=== PATIENT | male | born 1935 | race Caucasian/White ===

== ENCOUNTER 2022-11-05 15:45 | Inpatient (IN) | payer OTHER, MEDICARE ==
[2022-11-05] MEDS ORDERED: LIDOCAINE 5% TOPICAL PATCH TP ONE (16:30)
[2022-11-05] MEDS ORDERED: ACETAMINOPHEN 325 MG TABLET (FP) ONE (17:15)
[2022-11-05 17:20] LABS: BASO % 0.5 % (0-2.0); EOS % 0.8 % (0-4.5); HEMOGLOBIN 13.7 GM/dL (11.7-16.9); LYMPH % 10.2 % (8-40); MCH 30.1 pg (25.7-33.7); MCHC 34.2 g/dl (32.0-35.9); MEAN CELL VOLUME 88.2 fl (80-96); MEAN PLT VOLUME 8.3 fl (7.5-11.1); NEUT % 81.5 % (42.8-82.8); PLATELET COUNT 234 10^3/uL (134-434); RBC 4.54 M/mm3 (4.00-5.60); RDW 14.6 % (11.9-15.9); WHITE BLOOD COUNT 16.1 K/mm3 (4.0-10.0)
[2022-11-05 17:21] LABS: PH,URINE 5.5 (5.0-8.0); URINE APPEARANCE CLEAR; URINE BILIRUBIN NEGATIVE (NEGATIVE); URINE COLOR YELLOW; URINE GLUCOSE (UA) 3+ (NEGATIVE); URINE KETONE NEGATIVE (NEGATIVE); URINE LEUK ESTERASE NEGATIVE (NEGATIVE); URINE NITRITE NEGATIVE (NEGATIVE); URINE PROTEIN NEGATIVE (NEGATIVE)
[2022-11-05] MEDS: ACETAMINOPHEN 325 MG TABLET (FP) PO ONE (17:22)
[2022-11-05 17:39] LABS: POTASSIUM 3.9 mmol/L (3.5-5.1)
[2022-11-05 17:42] LABS: ALBUMIN 3.6 g/dl (3.4-5.0)
[2022-11-05 17:45] LABS: CREATININE 1.3 mg/dL (0.55-1.3)
[2022-11-05 17:47] LABS: BILIRUBIN,TOTAL 1.8 mg/dL (0.2-1)
[2022-11-05 21:35] LABS: HEMOGLOBIN 13.8 GM/dL (11.7-16.9); MCHC 33.7 g/dl (32.0-35.9); MEAN CELL VOLUME 89.1 fl (80-96); MEAN PLT VOLUME 7.9 fl (7.5-11.1); PLATELET COUNT 265 10^3/uL (134-434); RBC 4.61 M/mm3 (4.00-5.60); RDW 14.6 % (11.9-15.9); WHITE BLOOD COUNT 16.5 K/mm3 (4.0-10.0)
[2022-11-05 21:45] LABS: INR 2.31 (0.83-1.09); PROTHROMBIN TIME (PATIENT) 26.6 SEC (9.7-13.0)
[2022-11-05 21:48] LABS: ACTIVATED PTT 46.1 SECONDS (25.2-36.5)
[2022-11-06] MEDS ORDERED: PIPERACILLIN/TAZOB 3.375 GM 3.375 GM in DEXTROSE 5%-WATER - 50 ML IVPB ONE (01:45)
[2022-11-06] MEDS ORDERED: MELATONIN 5 MG TABLETS PO ONE (02:41)
[2022-11-06] MEDS: SODIUM CHLORIDE 1,000 ML IV SCH ×2 (03:33→15:29)
[2022-11-06] MEDS ORDERED: INSULIN (NOVOLOG) ASPART 100 UNITS/ML 10ML VIAL ONE ×3 (05:53→16:49)
[2022-11-06] MEDS: INSULIN SLIDING SCALE (NOVOLOG) 1 VIAL SQ SCH ×4 (06:11→22:00)
[2022-11-06] MEDS: TAMSULOSIN HCL 0.4 MG CAP PO SCH (07:51)
[2022-11-06] MEDS: FINASTERIDE 5 MG TABLET (FP) PO SCH (07:52)
[2022-11-06 08:10] LABS: BASO % 0.3 % (0-2.0); EOS % 1.3 % (0-4.5); HEMATOCRIT 37.3 % (35.4-49); HEMOGLOBIN 13.1 GM/dL (11.7-16.9); LYMPH % 11.3 % (8-40); MCHC 35.2 g/dl (32.0-35.9); MEAN CELL VOLUME 88.2 fl (80-96); MEAN PLT VOLUME 8.7 fl (7.5-11.1); MONO % 6.8 % (3.8-10.2); NEUT % 80.3 % (42.8-82.8); PLATELET COUNT 207 10^3/uL (134-434); RBC 4.23 M/mm3 (4.00-5.60); RDW 14.5 % (11.9-15.9); WHITE BLOOD COUNT 12.3 K/mm3 (4.0-10.0)
[2022-11-06 08:43] LABS: POTASSIUM 3.3 mmol/L (3.5-5.1)
[2022-11-06 08:45] LABS: CALCIUM 8.7 mg/dL (8.5-10.1)
[2022-11-06 08:46] LABS: ALBUMIN 3.2 g/dl (3.4-5.0); BLOOD UREA NITROGEN 25.7 mg/dL (7-18); MAGNESIUM 2.5 mg/dL (1.8-2.4)
[2022-11-06 08:48] LABS: BILIRUBIN,DIRECT 0.5 mg/dL (0.0-0.2); CREATININE 1.1 mg/dL (0.55-1.3)
[2022-11-06 08:49] LABS: PHOSPHOROUS 3.6 mg/dL (2.5-4.9)
[2022-11-06 08:50] LABS: BILIRUBIN,TOTAL 1.4 mg/dL (0.2-1); TOT PROT 6.3 g/dl (6.4-8.2)
[2022-11-06] MEDS: metoPROLOL SUCCINATE 25 MG TAB.SR.24H (FP) PO SCH (09:11)
[2022-11-06] MEDS: SERTRALINE HCL 50 MG TABLET (FP) PO SCH (09:11)
[2022-11-06] MEDS: POLYETHYLENE GLYCOL (HEALTHYLAX) 3350 17 GM PACKET PO SCH ×2 (09:12→22:12)
[2022-11-06] MEDS: MEMANTINE HCL 10 MG TABLET (FP) PO SCH (09:12)
[2022-11-06] MEDS: MULTIVITAMINS (DAILY MVI) TABLET (FP) PO SCH (09:12)
[2022-11-06] MEDS: TORSEMIDE 20 MG TABLET (FP) PO SCH (09:12)
[2022-11-06 11:54] LABS: N-TERMINAL BNP 264.5 pg/ml (5-450)
[2022-11-06] MEDS: POTASSIUM CHLORIDE TABS 20 MEQ TABLET.ER (FP) PO SCH (15:40)
[2022-11-06] MEDS ORDERED: WARFARIN NA 2 MG TABLET PO SCH (18:00)
[2022-11-06 19:47] LABS: INR 2.03 (0.83-1.09); PROTHROMBIN TIME (PATIENT) 23.4 SEC (9.7-13.0)
[2022-11-06 19:50] LABS: ACTIVATED PTT 38.2 SECONDS (25.2-36.5)
[2022-11-06] MEDS ORDERED: DONEPEZIL HCL 10 MG TABLET (FP) PO SCH (22:00)
[2022-11-06] MEDS ORDERED: ATORVASTATIN CA 10 MG TABLET (FP) PO SCH (22:00)
[2022-11-06] MEDS ORDERED: CHOLECALCIFEROL (VIT D3) 1,000 UNIT (25 MCG) TABLET PO SCH (22:00)
[2022-11-06] MEDS ORDERED: SPIRONOLACTONE 25 MG TABLET PO SCH (22:00)
[2022-11-06] MEDS: LIDOCAINE PATCH REMOVAL MC SCH ×2 (22:12)
[2022-11-07] MEDS: SODIUM CHLORIDE 1,000 ML IV SCH (03:35)
[2022-11-07] MEDS: FINASTERIDE 5 MG TABLET (FP) PO SCH (06:21)
[2022-11-07] MEDS: INSULIN SLIDING SCALE (NOVOLOG) 1 VIAL SQ SCH ×4 (06:21→21:45)
[2022-11-07] MEDS: TAMSULOSIN HCL 0.4 MG CAP PO SCH (07:57)
[2022-11-07 08:26] LABS: INR 1.81 (0.83-1.09); PROTHROMBIN TIME (PATIENT) 20.9 SEC (9.7-13.0)
[2022-11-07 08:29] LABS: ACTIVATED PTT 37.4 SECONDS (25.2-36.5)
[2022-11-07 08:32] LABS: HEMATOCRIT 36.4 % (35.4-49); HEMOGLOBIN 12.6 GM/dL (11.7-16.9); MCH 30.9 pg (25.7-33.7); MCHC 34.8 g/dl (32.0-35.9); MEAN CELL VOLUME 88.9 fl (80-96); MEAN PLT VOLUME 8.8 fl (7.5-11.1); PLATELET COUNT 197 10^3/uL (134-434); RBC 4.09 M/mm3 (4.00-5.60); RDW 14.5 % (11.9-15.9); WHITE BLOOD COUNT 10.7 K/mm3 (4.0-10.0)
[2022-11-07 08:43] LABS: POTASSIUM 3.4 mmol/L (3.5-5.1)
[2022-11-07 08:58] LABS: BLOOD UREA NITROGEN 21.4 mg/dL (7-18)
[2022-11-07 09:01] LABS: CREATININE 0.9 mg/dL (0.55-1.3); PHOSPHOROUS 3.1 mg/dL (2.5-4.9)
[2022-11-07 09:02] LABS: ALBUMIN 3.1 g/dl (3.4-5.0); CALCIUM 8.4 mg/dL (8.5-10.1)
[2022-11-07] MEDS: SERTRALINE HCL 50 MG TABLET (FP) PO SCH (09:02)
[2022-11-07] MEDS: MULTIVITAMINS (DAILY MVI) TABLET (FP) PO SCH (09:02)
[2022-11-07] MEDS: POTASSIUM CHLORIDE TABS 20 MEQ TABLET.ER (FP) PO SCH (09:02)
[2022-11-07 09:03] LABS: MAGNESIUM 2.2 mg/dL (1.8-2.4)
[2022-11-07] MEDS: POLYETHYLENE GLYCOL (HEALTHYLAX) 3350 17 GM PACKET PO SCH ×2 (09:03→21:44)
[2022-11-07] MEDS: metoPROLOL SUCCINATE 25 MG TAB.SR.24H (FP) PO SCH (09:03)
[2022-11-07] MEDS: MEMANTINE HCL 10 MG TABLET (FP) PO SCH (09:03)
[2022-11-07] MEDS: TORSEMIDE 20 MG TABLET (FP) PO SCH (09:03)
[2022-11-07] MEDS ORDERED: INSULIN (NOVOLOG) ASPART 100 UNITS/ML 10ML VIAL ONE ×2 (11:40→17:49)
[2022-11-07] MEDS ORDERED: CHOLECALCIFEROL (VIT D3) 1,000 UNIT (25 MCG) TABLET PO SCH (12:53)
[2022-11-07] MEDS ORDERED: WARFARIN NA 2 MG TABLET PO SCH (18:00)
[2022-11-07] MEDS ORDERED: WARFARIN NA 1 MG TABLET PO ONE (18:00)
[2022-11-07] MEDS: ACETAMINOPHEN 325 MG TABLET (FP) PO ONE (18:27)
[2022-11-07] MEDS: ATORVASTATIN CA 10 MG TABLET (FP) PO SCH (21:44)
[2022-11-07] MEDS: SPIRONOLACTONE 25 MG TABLET PO SCH (21:44)
[2022-11-07] MEDS: CHOLECALCIFEROL (VIT D3) 1,000 UNIT (25 MCG) TABLET PO SCH (21:44)
[2022-11-08] MEDS: INSULIN SLIDING SCALE (NOVOLOG) 1 VIAL SQ SCH ×4 (06:26→22:10)
[2022-11-08] MEDS: FINASTERIDE 5 MG TABLET (FP) PO SCH (06:28)
[2022-11-08] MEDS: TAMSULOSIN HCL 0.4 MG CAP PO SCH (09:40)
[2022-11-08] MEDS: MULTIVITAMINS (DAILY MVI) TABLET (FP) PO SCH (09:41)
[2022-11-08] MEDS: metoPROLOL SUCCINATE 25 MG TAB.SR.24H (FP) PO SCH (09:41)
[2022-11-08] MEDS: MEMANTINE HCL 10 MG TABLET (FP) PO SCH (09:41)
[2022-11-08] MEDS: SERTRALINE HCL 50 MG TABLET (FP) PO SCH (09:42)
[2022-11-08] MEDS: TORSEMIDE 20 MG TABLET (FP) PO SCH (09:42)
[2022-11-08] MEDS ORDERED: POTASSIUM CHLORIDE TABS 20 MEQ TABLET.ER (FP) PO SCH (10:00)
[2022-11-08 10:44] LABS: BASO % 0.4 % (0-2.0); EOS % 1.1 % (0-4.5); HEMATOCRIT 35.6 % (35.4-49); HEMOGLOBIN 12.3 GM/dL (11.7-16.9); LYMPH % 8.9 % (8-40); MCH 30.6 pg (25.7-33.7); MCHC 34.5 g/dl (32.0-35.9); MEAN CELL VOLUME 88.7 fl (80-96); MEAN PLT VOLUME 8.2 fl (7.5-11.1); MONO % 9.1 % (3.8-10.2); NEUT % 80.5 % (42.8-82.8); PLATELET COUNT 204 10^3/uL (134-434); RBC 4.02 M/mm3 (4.00-5.60); RDW 14.6 % (11.9-15.9)
[2022-11-08] MEDS: POLYETHYLENE GLYCOL (HEALTHYLAX) 3350 17 GM PACKET PO SCH ×2 (10:57→22:10)
[2022-11-08 10:58] LABS: POTASSIUM 3.7 mmol/L (3.5-5.1)
[2022-11-08 11:02] LABS: CALCIUM 8.3 mg/dL (8.5-10.1)
[2022-11-08 11:03] LABS: ALBUMIN 2.8 g/dl (3.4-5.0); BLOOD UREA NITROGEN 17.4 mg/dL (7-18); MAGNESIUM 2.2 mg/dL (1.8-2.4)
[2022-11-08 11:06] LABS: CREATININE 0.8 mg/dL (0.55-1.3)
[2022-11-08] MEDS ORDERED: INSULIN (NOVOLOG) ASPART 100 UNITS/ML 10ML VIAL ONE ×2 (11:42→17:33)
[2022-11-08] MEDS ORDERED: traMADol HCL 50 MG TABLET PO PRN (17:43)
[2022-11-08] MEDS ORDERED: ACETAMINOPHEN 325 MG TABLET (FP) PO PRN (17:44)
[2022-11-08] MEDS ORDERED: WARFARIN NA 2 MG TABLET PO SCH (18:00)
[2022-11-08] MEDS: CHOLECALCIFEROL (VIT D3) 1,000 UNIT (25 MCG) TABLET PO SCH (22:08)
[2022-11-08] MEDS: SPIRONOLACTONE 25 MG TABLET PO SCH (22:08)
[2022-11-08] MEDS: ATORVASTATIN CA 10 MG TABLET (FP) PO SCH (22:08)
[2022-11-09] MEDS: INSULIN SLIDING SCALE (NOVOLOG) 1 VIAL SQ SCH ×4 (06:51→21:41)
[2022-11-09] MEDS: FINASTERIDE 5 MG TABLET (FP) PO SCH (06:52)
[2022-11-09 09:14] LABS: BASO % 0.3 % (0-2.0); EOS % 1.4 % (0-4.5); HEMATOCRIT 36.8 % (35.4-49); HEMOGLOBIN 12.8 GM/dL (11.7-16.9); LYMPH % 7.7 % (8-40); MCH 30.9 pg (25.7-33.7); MCHC 34.9 g/dl (32.0-35.9); MEAN CELL VOLUME 88.6 fl (80-96); MEAN PLT VOLUME 7.6 fl (7.5-11.1); MONO % 10.3 % (3.8-10.2); NEUT % 80.3 % (42.8-82.8); PLATELET COUNT 230 10^3/uL (134-434); RBC 4.15 M/mm3 (4.00-5.60); RDW 14.6 % (11.9-15.9); WHITE BLOOD COUNT 10.2 K/mm3 (4.0-10.0)
[2022-11-09 09:21] LABS: INR 1.73 (0.83-1.09)
[2022-11-09 09:22] LABS: POTASSIUM 3.7 mmol/L (3.5-5.1)
[2022-11-09 09:28] LABS: CALCIUM 8.8 mg/dL (8.5-10.1)
[2022-11-09 09:29] LABS: ALBUMIN 2.9 g/dl (3.4-5.0); BLOOD UREA NITROGEN 16.9 mg/dL (7-18); MAGNESIUM 2.3 mg/dL (1.8-2.4)
[2022-11-09 09:32] LABS: CREATININE 0.9 mg/dL (0.55-1.3)
[2022-11-09 09:33] LABS: BILIRUBIN,TOTAL 2.3 mg/dL (0.2-1); TOT PROT 6.4 g/dl (6.4-8.2)
[2022-11-09] MEDS: TORSEMIDE 20 MG TABLET (FP) PO SCH (09:57)
[2022-11-09] MEDS: TAMSULOSIN HCL 0.4 MG CAP PO SCH (09:57)
[2022-11-09] MEDS: MEMANTINE HCL 10 MG TABLET (FP) PO SCH (09:58)
[2022-11-09] MEDS: MULTIVITAMINS (DAILY MVI) TABLET (FP) PO SCH (09:58)
[2022-11-09] MEDS: metoPROLOL SUCCINATE 25 MG TAB.SR.24H (FP) PO SCH (09:58)
[2022-11-09] MEDS: SERTRALINE HCL 50 MG TABLET (FP) PO SCH (09:58)
[2022-11-09] MEDS: POLYETHYLENE GLYCOL (HEALTHYLAX) 3350 17 GM PACKET PO SCH ×2 (09:59→21:41)
[2022-11-09] MEDS: LIDOCAINE 5% TOPICAL PATCH TP SCH (14:41)
[2022-11-09] MEDS ORDERED: WARFARIN NA 2 MG TABLET PO SCH (18:00)
[2022-11-09] MEDS ORDERED: INSULIN (NOVOLOG) ASPART 100 UNITS/ML 10ML VIAL ONE (18:00)
[2022-11-09] MEDS: SPIRONOLACTONE 25 MG TABLET PO SCH (21:41)
[2022-11-09] MEDS: CHOLECALCIFEROL (VIT D3) 1,000 UNIT (25 MCG) TABLET PO SCH (21:41)
[2022-11-09] MEDS: ATORVASTATIN CA 10 MG TABLET (FP) PO SCH (21:41)
[2022-11-09] MEDS ORDERED: LIDOCAINE PATCH REMOVAL MC SCH (22:00)
[2022-11-10] MEDS: INSULIN SLIDING SCALE (NOVOLOG) 1 VIAL SQ SCH ×4 (06:04→21:45)
[2022-11-10] MEDS: FINASTERIDE 5 MG TABLET (FP) PO SCH (06:05)
[2022-11-10] MEDS: TAMSULOSIN HCL 0.4 MG CAP PO SCH (09:27)
[2022-11-10] MEDS: SERTRALINE HCL 50 MG TABLET (FP) PO SCH (09:27)
[2022-11-10] MEDS: MULTIVITAMINS (DAILY MVI) TABLET (FP) PO SCH (09:27)
[2022-11-10] MEDS: TORSEMIDE 20 MG TABLET (FP) PO SCH (09:27)
[2022-11-10] MEDS: LIDOCAINE 5% TOPICAL PATCH TP SCH (09:27)
[2022-11-10] MEDS: metoPROLOL SUCCINATE 25 MG TAB.SR.24H (FP) PO SCH (09:27)
[2022-11-10] MEDS: POLYETHYLENE GLYCOL (HEALTHYLAX) 3350 17 GM PACKET PO SCH ×2 (09:28→21:44)
[2022-11-10] MEDS: MEMANTINE HCL 10 MG TABLET (FP) PO SCH (09:28)
[2022-11-10] MEDS: COLLAGENASE CLOSTRIDIUM HIST. 30 GRAMS TUBE TP SCH (14:50)
[2022-11-10] MEDS ORDERED: FUROSEMIDE 40 MG/4 ML INJECTABLE VIAL IVPUSH ONE (19:15)
[2022-11-10] MEDS: CHOLECALCIFEROL (VIT D3) 1,000 UNIT (25 MCG) TABLET PO SCH (21:37)
[2022-11-10] MEDS: DOCUSATE SODIUM 100 MG CAPSULE (FP) PO SCH (21:37)
[2022-11-10] MEDS: SPIRONOLACTONE 25 MG TABLET PO SCH (21:37)
[2022-11-10] MEDS: ATORVASTATIN CA 10 MG TABLET (FP) PO SCH (21:45)
[2022-11-10] MEDS: DABIGATRAN ETEXILATE MESYLATE 150 MG CAPSULE PO SCH (21:46)
[2022-11-10] MEDS ORDERED: LIDOCAINE PATCH REMOVAL MC SCH (22:00)
[2022-11-10 22:15] VITALS: RESP 20
[2022-11-11] MEDS: DOCUSATE SODIUM 100 MG CAPSULE (FP) PO SCH (05:13)
[2022-11-11] MEDS: INSULIN SLIDING SCALE (NOVOLOG) 1 VIAL SQ SCH ×2 (06:03→11:52)
[2022-11-11] MEDS: FINASTERIDE 5 MG TABLET (FP) PO SCH (06:03)
[2022-11-11 06:47] VITALS: TEMP 97.5
[2022-11-11 08:40] LABS: BASO % 0.4 % (0-2.0); EOS % 1.7 % (0-4.5); HEMATOCRIT 39.5 % (35.4-49); HEMOGLOBIN 13.7 GM/dL (11.7-16.9); LYMPH % 11.9 % (8-40); MCH 30.6 pg (25.7-33.7); MCHC 34.8 g/dl (32.0-35.9); MEAN CELL VOLUME 88.1 fl (80-96); MEAN PLT VOLUME 7.3 fl (7.5-11.1); MONO % 8.4 % (3.8-10.2); NEUT % 77.6 % (42.8-82.8); PLATELET COUNT 272 10^3/uL (134-434); RBC 4.49 M/mm3 (4.00-5.60); RDW 14.4 % (11.9-15.9)
[2022-11-11 08:55] LABS: POTASSIUM 3.3 mmol/L (3.5-5.1)
[2022-11-11 08:56] LABS: CALCIUM 8.6 mg/dL (8.5-10.1)
[2022-11-11 08:57] LABS: BLOOD UREA NITROGEN 20.8 mg/dL (7-18)
[2022-11-11 09:01] LABS: CREATININE 0.9 mg/dL (0.55-1.3)
[2022-11-11] MEDS: TAMSULOSIN HCL 0.4 MG CAP PO SCH (09:11)
[2022-11-11] MEDS ORDERED: POTASSIUM CHLORIDE TABS 20 MEQ TABLET.ER (FP) PO ONE (09:19)
[2022-11-11 09:41] VITALS: PULSE 90
[2022-11-11] MEDS ORDERED: LIDOCAINE 5% TOPICAL PATCH TP SCH ×2 (10:00)
[2022-11-11] MEDS: SERTRALINE HCL 50 MG TABLET (FP) PO SCH (11:03)
[2022-11-11] MEDS: TORSEMIDE 20 MG TABLET (FP) PO SCH (11:03)
[2022-11-11] MEDS: MULTIVITAMINS (DAILY MVI) TABLET (FP) PO SCH (11:03)
[2022-11-11] MEDS: MEMANTINE HCL 10 MG TABLET (FP) PO SCH (11:03)
[2022-11-11] MEDS: metoPROLOL SUCCINATE 25 MG TAB.SR.24H (FP) PO SCH (11:03)
[2022-11-11] MEDS: DABIGATRAN ETEXILATE MESYLATE 150 MG CAPSULE PO SCH (11:04)
[2022-11-11] MEDS: COLLAGENASE CLOSTRIDIUM HIST. 30 GRAMS TUBE TP SCH (11:04)
[2022-11-11] MEDS: POLYETHYLENE GLYCOL (HEALTHYLAX) 3350 17 GM PACKET PO SCH (11:05)
[2022-11-11] MEDS ORDERED: BUDESONIDE/FORMETEROL FUMARATE 160/4.5 mcg INHALER IH SCH (12:00)
[2022-11-11] MEDS ORDERED: ALBUTEROL SO4 2.5/IPRATROPIUM 0.5 INH SOL 3 ML VIAL.NEB. NEB SCH (12:00)
[2022-11-11 12:28] VITALS: BMI 33.9
[2022-11-11 13:23] VITALS: BP 128/78
== END 2022-11-11 14:51 | DRG 554 ==
LOC: JER 15:45 → JERBED 17:36 → J4W 23:54 → OBSVTOIN 11-07 12:51 → J8W 11-07 18:22
PROVIDERS: ADMIT Internal Medicine; ATTEND Nurse Practitioner Family
PROC: 0S9D3ZX Drainage of Left Knee Joint, Percutaneous Approach, Diagnostic (ICD-10-PCS; principal; 2022-11-06)
DX: M25.062 Hemarthrosis, left knee (principal); J44.1 Chronic obstructive pulmonary disease with (acute) exacerbation; I48.21 Permanent atrial fibrillation; J98.11 Atelectasis; I50.32 Chronic diastolic (congestive) heart failure; I11.0 Hypertensive heart disease with heart failure; F03.90 Unspecified dementia, unspecified severity, without behavioral disturbance, psychotic disturbance, mood disturbance, and anxiety; E11.65 Type 2 diabetes mellitus with hyperglycemia; K59.00 Constipation, unspecified; D32.9 Benign neoplasm of meninges, unspecified; W18.30XA Fall on same level, unspecified, initial encounter; E66.8 Other obesity; Z68.33 Body mass index [BMI] 33.0-33.9, adult; F32.A Depression, unspecified; D72.829 Elevated white blood cell count, unspecified; N40.0 Benign prostatic hyperplasia without lower urinary tract symptoms; Y93.89 Activity, other specified; Y92.89 Other specified places as the place of occurrence of the external cause; Z79.01 Long term (current) use of anticoagulants
CPT/HCPCS: 0241U-QW; 36415; 70450-TC; 71045-TC-FY; 71250-TC; 72125-TC; 72170-TC-FY; 72192-TC; 73562-TC-LT-FY; 73562-TC-RT-FY; 76705-TC; 80048; 80053; 81003; 82248; 82550; 82962; 83036; 83605; 83735; 83880; 84100; 84443; 84484; 85025; 85027; 85610; 85730; 87040; 87077; 87086; 87899; 93005; 93010; 93306-TC; 94761; 97116-GP; 97162-GP; 99285-25; C9803-CS; G0378; U0003; U0005